=== PATIENT | male | born 1940 | race Caucasian/White ===

== ENCOUNTER 2022-01-06 17:02 | Emergency (ER) | payer MEDICARE, BC ==
[2022-01-06 17:14] VITALS: RESP 18
[2022-01-06 17:36] LABS: Basophils % (A) 1 %; Eosinophils % (A) 1 %; HCT 35.1 % (39.0-53.0); HGB 11.7 gm/dL (13.0-17.5); Lymphocytes # (A) 0.8 k/uL (1.0-4.8); Lymphocytes % (A) 12 %; MCH 31.5 pg (25.0-35.0); MCHC 33.3 g/dL (31.0-37.0); MCV 94.8 fL (80.0-100.0); Mean Platelet Volume 7.8; Monocytes # (A) 0.5 k/uL (0-1.0); Monocytes % (A) 8 %; Neutrophils # (A) 5.3 k/uL (1.3-7.7); Neutrophils % (A) 77 %; Platelet Count 130 k/uL (150-450); RDW 13.2 % (11.5-15.5); WBC 6.9 k/uL (3.8-10.6)
[2022-01-06 17:50] LABS: Albumin 4.8 g/dL (3.5-5.0); Calcium 9.4 mg/dL (8.4-10.2); Potassium 4.3 mmol/L (3.5-5.1); Total Protein 9.4 g/dL (6.3-8.2)
[2022-01-06 18:05] LABS: INR 2.5 (<1.2); Partial Thromboplastin Time 31.1 sec (22.0-30.0); Prothrombin Time 24.9 sec (9.0-12.0)
--- NOTE | 2022-01-06 18:08 | CT ---
EXAMINATION TYPE: CT brain cspine wo con CT DLP: 1463.9 mGycm, Automated exposure control for dose reduction was used. DATE OF EXAM: 01/06/2022 5:41 PM COMPARISON: None.. CLINICAL INDICATION:Male, 81 years old with history of fall on thinners; Trip and fall, right supraor bital injury. TECHNIQUE: Brain: Multiple axial CT images of the brain were obtained without IV contrast. Cspine: Axial CT images from the skull base to the inferior aspect of T2 we obtained without intraven ous contrast. Coronal and sagittal reformatted images were also reviewed. FINDINGS: Brain: Extra-axial spaces: No abnormal extra-axial fluid collections. Ventricular system: Dilatation in proportion to cerebral atrophy. Cerebral parenchyma: No acute intraparenchymal hemorrhage or mass effect. The morales-white junction is well differentiated. Scattered hypoattenuating areas are seen within the white matter. Cerebellum: Cerebellar atrophy Mass effect: No evidence of midline shift. Intracranial vasculature: Atherosclerotic calcifications of the intracranial vessels. Soft tissues: Soft tissue edema/hematoma over the right frontal bone/superior orbital ridge. Calvarium/osseous structures: No depressed skull fracture. Paranasal sinuses and mastoid air cells: Clear. Visualized orbits: Bilateral aphakia Cervical spine: Fracture: None. Osseous structures: Multilevel degenerative disc disease changes with endplate spurring and disc oste ophyte complex's worse at C5-C6. Vertebral alignment: Within normal limits. Spinal canal/Neural Foramina: No evidence of significant spinal canal narrowing. No evidence for sign ificant neural foraminal stenosis. Neck soft tissues: Prevertebral soft tissues are within normal limits. Other: The airway is patent. The lung apices are clear. IMPRESSION: 1. No acute intracranial process. 2. Nonspecific white matter changes, likely secondary to chronic small vessel ischemic disease. 3. Right superior orbital ridge hematoma/contusion. 4. No evidence of cervical spine fracture. 5. Mild multilevel degenerative disc disease.
--- NOTE | 2022-01-06 18:36 | XR ---
EXAMINATION TYPE: XR wrist complete RT DATE OF EXAM: 01/06/2022 6:08 PM INDICATION: Patient age:Male; 81 years old; Reason for study: fall, pain; COMPARISON: None TECHNIQUE: 3 views of the 3 wrist. FINDINGS: Degenerative changes of the first carpal metacarpal joint sclerosis and joint space narrowi ng. Atherosclerosis of the arterial vasculature. No acute osseous pathology, joint dislocation, or mark int effusion. No evidence of any soft tissue swelling is seen. IMPRESSION: 1. No acute osseous pathology. 2. 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
[2022-01-06] MEDS ORDERED: BACITRACIN OINT 1 EACH PACKET TOPICAL ONE (19:20)
[2022-01-06] MEDS ORDERED: BACITRACIN OINT 1 EACH PACKET TOPICAL STA (19:35)
--- NOTE | 2022-01-06 20:26 | ED ---
Fall HPI - General Chief Complaint: Fall Stated Complaint: Fall Source: patient Mode of arrival: wheelchair - History of Present Illness Initial Comments: 81-year-old male with past medical history of A. fib, mechanical valve replacement on Coumadin who presents emergency room and after he had a fall. Patient reports he was coming out of the library. He missed a step and fell down one stair onto the concrete. Patient attempted to brace himself with his right wrist however fell forward and hit his head. He denies losing consciousness. He has an abrasion noted to his right forehead. He denies any headaches or visual changes. No confusion. No neck or back pain. Patient was ambulatory on scene and came in by private vehicle. Last INR was checked on Sunday and was 2.8. He denies any numbness, tingling or weakness in his extremities. Patient is right-hand dominant. No other alleviating, precipitating or modifying factors - Related Data Home Medications Medication Instructions Recorded Confirmed Acetaminophen Tab [Tylenol Tab] 500 mg PO DAILY 01/06/22 01/06/22 LApolinaracidophGladis B.lactis 1 cap PO DAILY 01/06/22 01/06/22 [Probiotic] Metoprolol Succinate [Toprol XL] 25 mg PO DAILY 01/06/22 01/06/22 Multivitamins, Thera [Multivitamin 1 tab PO DAILY 01/06/22 01/06/22 (formulary)] Olmesartan/Hydrochlorothiazide 1 tab PO DAILY 01/06/22 01/06/22 [Benicar Hct 40-25 mg Tablet] [place]-3 Fatty Acids/Fish Oil [Fish 1 cap PO DAILY 01/06/22 01/06/22 Oil 1,000 mg Softgel] Rosuvastatin Calcium [Crestor] 5 mg PO HS 01/06/22 01/06/22 Tamsulosin [Flomax] 0.4 mg PO DAILY 01/06/22 01/06/22 Warfarin [Coumadin] 2.5 mg PO SNOW 01/06/22 01/06/22 Warfarin [Coumadin] 5 mg PO [id number] 01/06/22 01/06/22 amLODIPine [Norvasc] 10 mg PO DAILY 01/06/22 01/06/22 hydrALAZINE HCL [Apresoline] 50 mg PO BID 01/06/22 01/06/22 traMADol HCL 50 mg PO BID@0800,1500 01/06/22 01/06/22 Allergies Allergy/AdvReac Type Severity Reaction Status Date / Time No Known Allergies Allergy Verified 01/06/22 19:03 Review of Systems ROS Statement: Those systems with pertinent positive or pertinent negative responses have been documented in the HPI. ROS Other: All systems not noted in ROS Statement are negative. Past Medical History Past Medical History: Atrial Fibrillation, Hypertension Additional Past Medical History / Comment(s): mitral valve replacement History of Any Multi-Drug Resistant Organisms: None Reported Additional Past Surgical History / Comment(s): mitral valve Past Psychological History: No Psychological Hx Reported Smoking Status: Never smoker Past Alcohol Use History: None Reported Past Drug Use History: None Reported General Exam Limitations: no limitations Course Vital Signs 01/06/22 01/06/22 17:10 19:45 Temperature 98.2 F 98 F Pulse Rate 65 58 L Respiratory 18 18 Rate Blood Pressure 127/61 137/87 O2 Sat by Pulse 98 96 Oximetry Medical Decision Making - Medical Decision Making Upon arrival the patient is placed into room 5. Thorough history and physical exam is performed. Patient is a level II trauma activation. I did speak with Dr. Quintana. Laboratory studies are conducted. Patient went for a CT of his head and cervical spine. Right wrist x-rays performed. I did review the patient's labs. INR is 2.5. Platelets of 1:30. CT of the brain and cervical spine demonstrates no acute intracranial process. Right scalp hematoma. No cervical fracture. X-ray of the patient's right wrist demonstrates arthritic changes without acute fracture. Patient does have good range of motion of the right wrist. He'll be discharged home and instructed to follow up with his primary care doctor in 2-4 days. May need repeat imaging of his right wrist if his pain persists. Return to the emergency department for any new or worsening symptoms. Patient agreed to this plan and was discharged home ambulatory in stable condition - Lab Data Result diagrams: 01/06/22 17:28 01/06/22 17:28 Lab Results 01/06/22 01/06/22 01/06/22 Range/Units 17:28 17:28 17:28 WBC 6.9 (3.8-10.6) k/uL RBC 3.70 L (4.30-5.90) m/uL Hgb 11.7 L (13.0-17.5) gm/dL Hct 35.1 L (39.0-53.0) % MCV 94.8 (80.0-100.0) fL MCH 31.5 (25.0-35.0) pg MCHC 33.3 (31.0-37.0) g/dL RDW 13.2 (11.5-15.5) % Plt Count 130 L (150-450) k/uL MPV 7.8 Neutrophils % 77 % Lymphocytes % 12 % Monocytes % 8 % Eosinophils % 1 % Basophils % 1 % Neutrophils # 5.3 (1.3-7.7) k/uL Lymphocytes # 0.8 L (1.0-4.8) k/uL Monocytes # 0.5 (0-1.0) k/uL Eosinophils # 0.0 (0-0.7) k/uL Basophils # 0.0 (0-0.2) k/uL PT 24.9 H (9.0-12.0) sec INR 2.5 H (<1.2) APTT 31.1 H (22.0-30.0) sec Sodium 132 L (137-145) mmol/L Potassium 4.3 (3.5-5.1) mmol/L Chloride 99 (98-107) mmol/L Carbon Dioxide 22 (22-30) mmol/L Anion Gap 11 mmol/L BUN 22 H (9-20) mg/dL Creatinine 1.32 H (0.66-1.25) mg/dL Est GFR (CKD-EPI)AfAm 59 (>60 ml/min/1.73 sqM) Est GFR (CKD-EPI)NonAf 51 (>60 ml/min/1.73 sqM) Glucose 124 H (74-99) mg/dL Calcium 9.4 (8.4-10.2) mg/dL Total Bilirubin 1.0 (0.2-1.3) mg/dL AST 36 (17-59) U/L ALT 23 (4-49) U/L Alkaline Phosphatase 65 (38-126) U/L Total Protein 9.4 H (6.3-8.2) g/dL Albumin 4.8 (3.5-5.0) g/dL Disposition Clinical Impression: Fall, Concussion without loss of consciousness, Traumatic hematoma of forehead, Anticoagulated on Coumadin, Wrist pain, acute Disposition: HOME SELF-CARE Condition: Stable Instructions (If sedation given, give patient instructions): Concussion (ED) Additional Instructions: Please take your Coumadin as directed. Follow-up with your doctor at your scheduled appointment on Sunday. Return to the emergency room for any new or worsening symptoms. You may need repeat imaging in 7-10 days if your wrist continues to hurt. Is patient prescribed a controlled substance at d/c from ED?: No Referrals: Seamus Reina DO [Primary Care Provider] - 1-2 days Time of Disposition: 19:25
[2022-01-06 22:45] VITALS: BP 137/87; PULSE 58; TEMP 98
== END 2022-01-06 19:45 | disposition home or self-care (01) ==
LOC: EC 17:02
DX: S06.0X0A Concussion without loss of consciousness, initial encounter (principal); S00.83XA Contusion of other part of head, initial encounter; M25.531 Pain in right wrist; I10 Essential (primary) hypertension; I48.91 Unspecified atrial fibrillation; Z79.01 Long term (current) use of anticoagulants; W10.8XXA Fall (on) (from) other stairs and steps, initial encounter
CPT/HCPCS: 36415; 70450; 72125; 80053; 85025; 85610; 85730; 99284